=== PATIENT | male | born 1975 | race Caucasian/White ===

== ENCOUNTER → 2021-05-13 | Outpatient (CLI) | payer OTHER ==
--- NOTE | 2021-05-13 09:33 | KCIC ---
CT cervical spine without contrast dated 05/13/2021. COMPARISON: None. INDICATION: Bilateral radiculopathy, left greater than right. History of prior surgery. TECHNIQUE: Contiguous axial imaging the cervical spine performed with thin cut coronal and sagittal reconstructi on. One or more of the following individualized dose reduction techniques were utilized for this examinat ion: 1. Automated exposure control 2. Adjustment of the mA and/or kV according to patient size 3. Use of iterative reconstruction technique. FINDINGS: There has been anterior fusion from C4 to C7 with anterior plate and intervertebral body screws in pl aristeo. There is radiolucency along the screw margins at the C7 level with fractured screw to the right of midline. Remaining plate and screws are intact. There is graft material at the C4-C5, C5-C6 and C6 -C7 discs. Incomplete fusion at the level the disks. Slight anterolisthesis of C7 on T1. Sagittal alignment is otherwise anatomic. Vertebral body heights are maintained. No prevertebral soft tissue swelling. Posterior elements are intact. At C2-C3, mild uncovertebral spurring without significant posterior bulge. There is moderate left-linda ed facet arthropathy with mild hypertrophic changes on the right. Resultant mild to moderate left for aminal stenosis. The central canal and right foramen are adequate. At C3-C4, mild broad-based bulge with uncovertebral spurring and mild hypertrophic change of the face t joints. Central canal is mildly narrowed. Mild left foraminal narrowing. At C4-C5, moderate uncovertebral spurring and posterior osteophytic ridging with moderate bilateral f acet arthropathy. Central canal is mildly narrowed. There is moderate to severe left foraminal stenos is with mild foraminal narrowing on the right. At C5-C6, moderate uncovertebral spurring and posterior osteophytic ridging with moderate bilateral f acet arthropathy. Central canal is adequate. There is moderate to severe left foraminal stenosis with mild foraminal narrowing on the right. At C6-C7, moderate uncovertebral spurring and posterior osteophytic ridging with mild to moderate fac et arthropathy. Central canal is mildly narrowed. There is severe bilateral foraminal stenosis. At C7-T1, no significant posterior bulge. Central canal and foramen are adequate. IMPRESSION: 1. Status post anterior fusion from C4 to C7. There is radiolucency along the screw margins at the C7 level with fractured right-sided intervertebral body screw. Consider loosening and/or infection. Cor relate with any prior imaging studies to assess for interval change. 2. Moderate multilevel spondylosis with multilevel mild central stenosis and varying degrees of mild to severe foraminal stenosis throughout. Please see above report for full details at each level. Electronically signed by: Ben Patel MD (05/13/2021 9:30 AM) [facility]
== END ==
LOC: KCIC CT 08:37
PROVIDERS: ATTEND Family Medicine
DX: M47.812 Spondylosis without myelopathy or radiculopathy, cervical region (principal); M48.02 Spinal stenosis, cervical region; M48.8X2 Other specified spondylopathies, cervical region; M46.02 Spinal enthesopathy, cervical region; M25.78 Osteophyte, vertebrae; M50.90 Cervical disc disorder, unspecified, unspecified cervical region
CPT/HCPCS: 72125